=== PATIENT | male | born 1955 | race Caucasian/White ===

== ENCOUNTER 2019-07-20 10:14 | Outpatient (CLI) | payer MEDICARE ==
--- NOTE | 2019-07-20 16:13 | RAD ---
RIGHT LEG TWO VIEWS: 07/20/19 AP and lateral views are provided with no prior films available for comparison. There is an oblique fracture of the mid to distal fibular shaft. This appears to be more likely recen t than old. Additionally, there are changes in the mid to distal tibia with thickened callus or perio steal reaction around a slightly mottled area of bone. The appearance looks more likely longstanding than acute, though I would need old films to compare with to be certain. They would be quite valuable in this case. The findings are not definitive for acute osteomyelitis. This could be the residual of prior bony infection. Other studies (appropriate nuclear scans, MRI) might better tell if there is c urrent active change here or not. The proximal portions of the leg were unremarkable. IMPRESSION: 1. Fracture of the fibular shaft as noted. The appearance seems more recent than remote, but old films would be needed to be certain. 2. Thickened callus or periosteal reaction in the distal tibial shaft with some mottling of the bone in the vicinity. This appears more likely longstanding than acute. Consider other imaging to det ermine age of the process or obtain old films to compare with. POS: HOME
--- NOTE | 2019-07-20 16:16 | RAD ---
RIGHT ANKLE THREE VIEWS: 07/20/19 At the margin of the film, one sees a fracture of the distal fibular shaft. It appears acute or suba cute, but old films would be needed to be certain. The distal tibia shows periosteal reaction or thic kened callus along the shaft that appears longstanding and not acute. The findings seem more indicati ve of a chronic or healed process than an acute active one. Other imaging modalities would be needed to be certain, or comparison films showing no exchange specialist time might do the same. The ankle joint its elf appears intact. A calcaneal spur is present. There is some spurring in the calcaneonavicular join t. IMPRESSION: Changes in the distal tibial shaft more likely longstanding than not. Oblique fracture of the distal fibular shaft well above the ankle joint that may be somewhat newer than the tibial findings. POS: HOME
== END 2019-07-20 10:15 | disposition home or self-care (01) ==
LOC: BURRAD 10:14
PROVIDERS: ATTEND Nurse Practitioner Family
DX: L03.115 Cellulitis of right lower limb (principal); S82.831A Other fracture of upper and lower end of right fibula, initial encounter for closed fracture; S82.431A Displaced oblique fracture of shaft of right fibula, initial encounter for closed fracture